=== PATIENT | male | born 1990 | race African-American/Black ===

== ENCOUNTER 2023-01-29 08:22 | Inpatient (IN) | payer OTHER ==
[~2023-01-29] VITALS: Ht 177.8 cm; Wt 48.1 kg
[~2023-01-29 08:22] MED LIST: UNRESOLVED CLARIFICATION ENTRY XX SCH
[2023-01-29] MEDS ORDERED: LIDOCAINE 2% 5ML JELLY UROJET TOP ONE (09:00)
[2023-01-29] MEDS ORDERED: LORazepam 2 MG/ML 1ML VIAL IM STA (09:02)
[2023-01-29] MEDS ORDERED: OLANZapine INTRAMUSCULAR 10MG VIAL IM ONE (09:05)
[2023-01-29] MEDS ORDERED: NS 1,000 ML IV ONE ×2 (09:15→10:10)
[2023-01-29 09:26] LABS: HEMATOCRIT 46.8 % (42.0-52.0); HEMOGLOBIN 15.5 g/dl (13.5-17.5); MEAN CORPUSCULAR HEMOGLOBIN 27.1 pg (27.0-33.0); MEAN CORPUSCULAR HGB CONC 33.1 g/dl (32.0-36.5); MEAN CORPUSCULAR VOLUME 81.8 fl (80.0-96.0); PLATELET COUNT, AUTOMATED 185 10^3/uL (150-450); RED BLOOD COUNT 5.72 10^6/uL (4.30-6.10); WHITE BLOOD COUNT 5.1 10^3/uL (4.0-10.0)
[2023-01-29 09:50] LABS: ETHYL ALCOHOL (ETHANOL) 0.004 % (0.000-0.010)
[2023-01-29 09:51] LABS: SALICYLATE LEVEL < 3.0 MG/DL (<30)
[2023-01-29 09:52] LABS: ALBUMIN 4.4 G/DL (3.2-5.2); ALKALINE PHOSPHATASE 65 U/L (46-116); ALT/SGPT 21 U/L (7.0-40); AST/SGOT 18 U/L (<34); BILIRUBIN,DIRECT 0.9 MG/DL (<0.4); BILIRUBIN,TOTAL 2.9 MG/DL (0.3-1.2); BLOOD UREA NITROGEN 17 MG/DL (9-23); CALCIUM LEVEL 10.4 MG/DL (8.5-10.1); CARBON DIOXIDE LEVEL 19 MMOL/L (20-31); CHLORIDE LEVEL 103 MMOL/L (98-107); CREATININE FOR GFR 1.19 MG/DL (0.70-1.30); GLOMERULAR FILTRATION RATE > 60.0 (>60); GLUCOSE, FASTING 77 MG/DL (60-100); POTASSIUM SERUM 4.8 MMOL/L (3.5-5.1); SODIUM LEVEL 145 MMOL/L (136-145); TOTAL PROTEIN 7.6 G/DL (5.7-8.2)
[2023-01-29 09:54] LABS: THYROID STIMULATING HORMONE 1.031 uIU/ML (0.55-4.78)
[2023-01-29 09:56] LABS: ACETAMINOPHEN LEVEL < 2.0 UG/ML (10.0-20.0)
[2023-01-29 10:32] LABS: APPEARANCE, URINE HAZY (CLEAR); BACTERIA, URINE AUTO NEGATIVE (NEGATIVE); BILIRUBIN, URINE AUTO NEGATIVE (NEGATIVE); BLOOD, URINE BLOOD 3+ (NEGATIVE); COLOR, URINE YELLOW (YELLOW); GLUCOSE, URINE (UA) AUTO NEGATIVE (NEGATIVE); KETONE, URINE AUTO 2+ mg/dL (NEGATIVE); LEUKOCYTE ESTERASE, URINE AUTO NEGATIVE (NEGATIVE); MUCUS, URINE SMALL (NEGATIVE); NITRITE, URINE AUTO NEGATIVE (NEGATIVE); PROTEIN, URINE AUTO NEGATIVE (NEGATIVE); RBC, URINE AUTO TNTC /HPF (0-3); SPECIFIC GRAVITY URINE AUTO 1.023 (1.002-1.035); SQUAMOUS EPITHELIAL CELL UR AU 0 /HPF (0-6); UROBILINOGEN, URINE AUTO 0.2 mg/dL (0.0-2.0); WBC, URINE AUTO 2 /HPF (0-3)
[2023-01-29 10:38] LABS: AMPHETAMINES LEVEL URINE NEGATIVE (NEGATIVE); BARBITURATES URINE NEGATIVE (NEGATIVE); BENZODIAZEPINES URINE NEGATIVE (NEGATIVE); COCAINE METABOLITE URINE NEGATIVE (NEGATIVE); METHADONE URINE NEGATIVE (NEGATIVE)
[2023-01-29 10:39] LABS: CANNABINOIDS URINE NEGATIVE (NEGATIVE); OPIATES URINE NEGATIVE (NEGATIVE); PHENCYCLIDINE URINE NEGATIVE (NEGATIVE)
[2023-01-29 11:15] VITALS: O2SAT 100
[2023-01-29 11:24] LABS: ABG pH (ARTERIAL) 7.427 UNITS (7.350-7.450)
[2023-01-29 11:25] LABS: ABG BASE EXCESS -8.9 (-2.0-2.0); ABG HCO3 13.2 MMOL/L (22.0-26.0); ABG O2 SATURATION 98.3 % (95.0-99.0); ABG PARTIAL PRESSURE CO2 20.5 mmHg (35.0-45.0); ABG PARTIAL PRESSURE O2 138.3 mmHg (75.0-100.0); ABG STANDARD HCO3 17.4 MMOL/L. (22.0-26.0); ABG TOTAL CO2 13.8 MMOL/L (22.0-29.0)
[2023-01-29] MEDS ORDERED: LORazepam 2 MG/ML 1ML VIAL IV STA (11:59)
[2023-01-29] MEDS ORDERED: MED REC IN PROGRESS XX SCH (13:05)
[2023-01-29 13:26] LABS: BLOOD UREA NITROGEN 15 MG/DL (9-23); CARBON DIOXIDE LEVEL 19 MMOL/L (20-31); CHLORIDE LEVEL 106 MMOL/L (98-107); CREATININE FOR GFR 1.16 MG/DL (0.70-1.30); GLOMERULAR FILTRATION RATE > 60.0 (>60); GLUCOSE, FASTING 74 MG/DL (60-100); POTASSIUM SERUM 4.1 MMOL/L (3.5-5.1); SODIUM LEVEL 139 MMOL/L (136-145)
[2023-01-29] MEDS ORDERED: MED REC CURRENTLY UNOBTAINABLE XX SCH (21:50)
[2023-01-30] MEDS ORDERED: MED REC IN PROGRESS XX SCH (17:25)
[2023-01-30] MEDS ORDERED: HOME MED LIST COMPLETE! XX SCH (17:40)
[2023-02-01 09:33] LABS: BLOOD UREA NITROGEN 8 MG/DL (9-23); CARBON DIOXIDE LEVEL 28 MMOL/L (20-31); CHLORIDE LEVEL 107 MMOL/L (98-107); CREATININE FOR GFR 0.82 MG/DL (0.70-1.30); GLOMERULAR FILTRATION RATE > 60.0 (>60); GLUCOSE, FASTING 75 MG/DL (60-100); POTASSIUM SERUM 3.9 MMOL/L (3.5-5.1); SODIUM LEVEL 141 MMOL/L (136-145)
[2023-02-01 15:36] VITALS: BP 123/61; TEMP 97.2
[2023-02-01] MEDS ORDERED: diphenhydrAMINE 25MG CAP PO PRN (16:10)
[2023-02-01] MEDS ORDERED: MOM 30ML SUSPENSION UDC PO PRN (16:10)
[2023-02-01] MEDS ORDERED: MAALOX 30 ML SUSP *UDC PO PRN (16:10)
[2023-02-01] MEDS ORDERED: ACETAMINOPHEN TAB 650MG DOSE (2X325MG) PO PRN (16:10)
[2023-02-01] MEDS ORDERED: traZODone 50 MG TAB PO PRN (16:10)
[2023-02-01] MEDS ORDERED: IBUPROFEN 400MG TAB PO PRN (16:10)
[2023-02-02 05:57] VITALS: BP 105/66; TEMP 97.2; O2SAT 98
[2023-02-02 18:25] VITALS: BP 113/76; TEMP 96.8; O2SAT 96
[2023-02-02] MEDS: OLANZapine 2.5MG TABLET PO SCH (20:45)
[2023-02-03 06:19] VITALS: BP 108/61; TEMP 97.9; O2SAT 99
[2023-02-03 17:49] VITALS: BP 111/65; TEMP 97.5; O2SAT 98
[2023-02-03] MEDS: MIRTAZAPINE 7.5MG PER 1/2 TABLET PO SCH (21:00)
[2023-02-03] MEDS: OLANZapine 2.5MG TABLET PO SCH (21:00)
[2023-02-04 07:22] LABS: CHOLESTEROL RISK RATIO 2.58 (<5); HDL CHOLESTEROL 53.3 MG/DL (>40); LDL CHOLESTEROL 72.7 MG/DL (<100); NON-HDL-C 84.7 MG/DL
[2023-02-04 18:03] VITALS: BP 115/72; TEMP 97.1; O2SAT 99
[2023-02-04] MEDS: MIRTAZAPINE 7.5MG PER 1/2 TABLET PO SCH (21:00)
[2023-02-04] MEDS: OLANZapine 2.5MG TABLET PO SCH (21:00)
[2023-02-05 18:00] VITALS: BP 124/73; TEMP 97
[2023-02-05] MEDS: MIRTAZAPINE 7.5MG PER 1/2 TABLET PO SCH (21:00)
[2023-02-05] MEDS: OLANZapine 2.5MG TABLET PO SCH (21:00)
[2023-02-06] MEDS ORDERED: OLANZapine 2.5MG TABLET PO ONE (10:40)
[2023-02-06 11:32] LABS: BASO % 0.3 % (0.0-1.0); EOS % 0.3 % (0.0-3.0); HEMATOCRIT 42.9 % (42.0-52.0); HEMOGLOBIN 14.3 g/dl (13.5-17.5); LYMPH # 0.8 10^3/uL (1.5-5.0); LYMPH % 6.6 % (24.0-44.0); MEAN CORPUSCULAR HEMOGLOBIN 26.9 pg (27.0-33.0); MEAN CORPUSCULAR HGB CONC 33.3 g/dl (32.0-36.5); MEAN CORPUSCULAR VOLUME 80.8 fl (80.0-96.0); MONO # 0.7 10^3/uL (0.0-0.8); MONO % 5.9 % (2.0-8.0); NEUTROPHILS # 9.9 10^3/uL (1.5-8.5); NEUTROPHILS % 86.5 % (36.0-66.0); PLATELET COUNT, AUTOMATED 212 10^3/uL (150-450); RED BLOOD COUNT 5.31 10^6/uL (4.30-6.10); WHITE BLOOD COUNT 11.5 10^3/uL (4.0-10.0)
[2023-02-06 11:57] LABS: ALBUMIN 4.3 G/DL (3.2-5.2); ALKALINE PHOSPHATASE 82 U/L (46-116); ALT/SGPT 23 U/L (7.0-40); AST/SGOT 18 U/L (<34); BILIRUBIN,TOTAL 3.4 MG/DL (0.3-1.2); BLOOD UREA NITROGEN 15 MG/DL (9-23); CALCIUM LEVEL 10.1 MG/DL (8.5-10.1); CARBON DIOXIDE LEVEL 25 MMOL/L (20-31); CHLORIDE LEVEL 100 MMOL/L (98-107); CREATININE FOR GFR 1.06 MG/DL (0.70-1.30); GLOMERULAR FILTRATION RATE > 60.0 (>60); GLUCOSE, FASTING 91 MG/DL (60-100); POTASSIUM SERUM 4.2 MMOL/L (3.5-5.1); SODIUM LEVEL 140 MMOL/L (136-145); TOTAL PROTEIN 7.7 G/DL (5.7-8.2)
[2023-02-06] MEDS: OLANZapine 2.5MG TABLET PO SCH ×3 (13:00→21:00)
[2023-02-06] MEDS ORDERED: OLANZapine 10 MG TAB PO ONE (17:40)
[2023-02-06] MEDS: MIRTAZAPINE 7.5MG PER 1/2 TABLET PO SCH (21:00)
[2023-02-06 21:57] LABS: ALBUMIN 4.2 G/DL (3.2-5.2); ALKALINE PHOSPHATASE 84 U/L (46-116); ALT/SGPT 16 U/L (7.0-40); AST/SGOT 30 U/L (<34); BILIRUBIN,TOTAL 0.3 MG/DL (0.3-1.2); BLOOD UREA NITROGEN 12 MG/DL (9-23); CALCIUM LEVEL 8.6 MG/DL (8.5-10.1); CARBON DIOXIDE LEVEL 28 MMOL/L (20-31); CHLORIDE LEVEL 104 MMOL/L (98-107); CREATININE FOR GFR 0.73 MG/DL (0.70-1.30); GLOMERULAR FILTRATION RATE > 60.0 (>60); GLUCOSE, FASTING 102 MG/DL (60-100); POTASSIUM SERUM 4.5 MMOL/L (3.5-5.1); SODIUM LEVEL 141 MMOL/L (136-145); TOTAL PROTEIN 6.9 G/DL (5.7-8.2)
[2023-02-07] MEDS: OLANZapine 2.5MG TABLET PO SCH ×4 (09:00→20:28)
[2023-02-07] MEDS: MIRTAZAPINE 7.5MG PER 1/2 TABLET PO SCH (20:28)
[2023-02-08] MEDS: OLANZapine 2.5MG TABLET PO SCH ×4 (09:00→21:00)
[2023-02-08] MEDS: MIRTAZAPINE 7.5MG PER 1/2 TABLET PO SCH (21:00)
[2023-02-09] MEDS: OLANZapine 2.5MG TABLET PO SCH ×4 (09:00→21:00)
[2023-02-09] MEDS: MIRTAZAPINE 7.5MG PER 1/2 TABLET PO SCH (21:00)
[2023-02-10] MEDS: OLANZapine 2.5MG TABLET PO SCH ×4 (09:00→20:43)
[2023-02-10] MEDS: MIRTAZAPINE 7.5MG PER 1/2 TABLET PO SCH (20:43)
[2023-02-11] MEDS: OLANZapine 2.5MG TABLET PO SCH ×4 (09:00→20:37)
[2023-02-11] MEDS: MIRTAZAPINE 7.5MG PER 1/2 TABLET PO SCH (20:37)
[2023-02-12] MEDS: OLANZapine 2.5MG TABLET PO SCH ×4 (09:00→21:00)
[2023-02-12] MEDS: MIRTAZAPINE 7.5MG PER 1/2 TABLET PO SCH (21:00)
[2023-02-13] MEDS: OLANZapine 2.5MG TABLET PO SCH ×4 (09:00→20:49)
[2023-02-13] MEDS: MIRTAZAPINE 7.5MG PER 1/2 TABLET PO SCH (20:49)
[2023-02-14] MEDS: OLANZapine 2.5MG TABLET PO SCH ×4 (09:00→21:00)
[2023-02-14] MEDS: MIRTAZAPINE 7.5MG PER 1/2 TABLET PO SCH (21:00)
[2023-02-15] MEDS: OLANZapine 2.5MG TABLET PO SCH ×4 (09:00→21:00)
[2023-02-15] MEDS: MIRTAZAPINE 7.5MG PER 1/2 TABLET PO SCH (21:00)
[2023-02-16] MEDS: OLANZapine 2.5MG TABLET PO SCH ×4 (08:53→21:00)
[2023-02-16 15:53] VITALS: BP 123/71; TEMP 98.8; O2SAT 100
[2023-02-16 16:23] LABS: BASO % 0.5 % (0.0-1.0); HEMATOCRIT 39.9 % (42.0-52.0); HEMOGLOBIN 13.3 g/dl (13.5-17.5); LYMPH # 0.9 10^3/uL (1.5-5.0); LYMPH % 14.3 % (24.0-44.0); MEAN CORPUSCULAR HEMOGLOBIN 27.4 pg (27.0-33.0); MEAN CORPUSCULAR HGB CONC 33.3 g/dl (32.0-36.5); MEAN CORPUSCULAR VOLUME 82.3 fl (80.0-96.0); MONO # 0.4 10^3/uL (0.0-0.8); MONO % 6.9 % (2.0-8.0); NEUTROPHILS # 4.9 10^3/uL (1.5-8.5); NEUTROPHILS % 78.1 % (36.0-66.0); PLATELET COUNT, AUTOMATED 266 10^3/uL (150-450); RED BLOOD COUNT 4.85 10^6/uL (4.30-6.10); WHITE BLOOD COUNT 6.2 10^3/uL (4.0-10.0)
[2023-02-16 16:30] LABS: ALBUMIN 3.8 G/DL (3.2-5.2); ALKALINE PHOSPHATASE 97 U/L (46-116); ALT/SGPT 27 U/L (7.0-40); AST/SGOT 21 U/L (<34); BILIRUBIN,TOTAL 1.1 MG/DL (0.3-1.2); BLOOD UREA NITROGEN 22 MG/DL (9-23); CALCIUM LEVEL 9.7 MG/DL (8.5-10.1); CARBON DIOXIDE LEVEL 28 MMOL/L (20-31); CHLORIDE LEVEL 105 MMOL/L (98-107); CREATININE FOR GFR 0.83 MG/DL (0.70-1.30); GLOMERULAR FILTRATION RATE > 60.0 (>60); GLUCOSE, FASTING 93 MG/DL (60-100); POTASSIUM SERUM 4.5 MMOL/L (3.5-5.1); SODIUM LEVEL 143 MMOL/L (136-145); TOTAL PROTEIN 7.2 G/DL (5.7-8.2)
[2023-02-16] MEDS: MIRTAZAPINE 7.5MG PER 1/2 TABLET PO SCH (21:00)
[2023-02-17 06:11] VITALS: BP 108/55; TEMP 97.6; O2SAT 100
[2023-02-17] MEDS: OLANZapine 2.5MG TABLET PO SCH ×4 (08:27→20:58)
[2023-02-17] MEDS: MIRTAZAPINE 7.5MG PER 1/2 TABLET PO SCH (20:58)
[2023-02-18] MEDS: OLANZapine 2.5MG TABLET PO SCH ×4 (09:00→21:00)
[2023-02-18] MEDS: MIRTAZAPINE 7.5MG PER 1/2 TABLET PO SCH (21:00)
[2023-02-19] MEDS: OLANZapine 2.5MG TABLET PO SCH (08:39)
== END 2023-02-19 12:38 | disposition home or self-care (01) | DRG 881 ==
LOC: M ED 08:22 → EDBD 08:22 → CANBEDREQ 13:53 → M ED INP 02-01 12:16 → M PSY 02-01 15:31
PROVIDERS: ADMIT Student in an Organized Health Care Education/Training Program; ATTEND Student in an Organized Health Care Education/Training Program
DX: F43.21 Adjustment disorder with depressed mood (principal); Z68.1 Body mass index [BMI] 19.9 or less, adult; F50.9 Eating disorder, unspecified; F94.0 Selective mutism

== ENCOUNTER 2023-02-19 14:39 | Emergency (ER) | payer OTHER | END 2023-02-19 15:43 | disposition home or self-care (01) | LOC: M ED 14:39 | DX: F43.9 Reaction to severe stress, unspecified (principal) ==

== ENCOUNTER 2023-02-25 16:50 | Emergency (ER) | payer OTHER ==
[~2023-02-25] VITALS: Ht 170.2 cm; Wt 58.6 kg
[2023-02-25] MEDS ORDERED: DEXTROSE 50% 50ML SYRINGE As Ordered ONE (17:03)
[2023-02-25 17:04] VITALS: TEMP 97.3
[2023-02-25] MEDS ORDERED: DEXTROSE 50% 50ML SYRINGE IV STA (17:05)
[2023-02-25] MEDS ORDERED: NS 1,000 ML IV ONE (17:25)
[2023-02-25 17:27] LABS: BASO % 0.2 % (0.0-1.0); HEMATOCRIT 28.3 % (42.0-52.0); HEMOGLOBIN 9.5 g/dl (13.5-17.5); LYMPH # 0.6 10^3/uL (1.5-5.0); LYMPH % 9.6 % (24.0-44.0); MEAN CORPUSCULAR HEMOGLOBIN 27.9 pg (27.0-33.0); MEAN CORPUSCULAR HGB CONC 33.6 g/dl (32.0-36.5); MEAN CORPUSCULAR VOLUME 83.2 fl (80.0-96.0); MONO # 0.3 10^3/uL (0.0-0.8); MONO % 5.8 % (2.0-8.0); NEUTROPHILS # 4.8 10^3/uL (1.5-8.5); NEUTROPHILS % 83.9 % (36.0-66.0); PLATELET COUNT, AUTOMATED 170 10^3/uL (150-450); WHITE BLOOD COUNT 5.7 10^3/uL (4.0-10.0)
[2023-02-25 17:55] LABS: ALBUMIN 2.5 G/DL (3.2-5.2); ALKALINE PHOSPHATASE 69 U/L (46-116); ALT/SGPT 33 U/L (7.0-40); AST/SGOT 21 U/L (<34); BILIRUBIN,DIRECT 0.3 MG/DL (<0.4); BILIRUBIN,TOTAL 0.7 MG/DL (0.3-1.2); BLOOD UREA NITROGEN 10 MG/DL (9-23); CALCIUM LEVEL 7.7 MG/DL (8.5-10.1); CARBON DIOXIDE LEVEL 27 MMOL/L (20-31); CHLORIDE LEVEL 111 MMOL/L (98-107); CREATININE FOR GFR 0.94 MG/DL (0.70-1.30); GLOMERULAR FILTRATION RATE > 60.0 (>60); GLUCOSE, FASTING 65 MG/DL (60-100); SODIUM LEVEL 144 MMOL/L (136-145); TOTAL PROTEIN 4.7 G/DL (5.7-8.2)
[2023-02-25 17:56] LABS: THYROID STIMULATING HORMONE 1.084 uIU/ML (0.55-4.78)
[2023-02-25 17:59] LABS: ACETONE/KETONE 0.08 MMOL/L (0.02-0.27)
[2023-02-25 18:09] LABS: VENOUS BASE EXCESS -4.6 (-2.0-2.0); VENOUS HCO3 20.5 MMOL/L (23.0-27.0); VENOUS O2 SATURATION 92.2 % (60.0-80.0); VENOUS PARTIAL PRESSURE CO2 37.9 mmHg (38.0-50.0); VENOUS PARTIAL PRESSURE O2 65.4 mmHg (30.0-50.0); VENOUS PH 7.351 UNITS (7.330-7.430); VENOUS STANDARD HCO3 20.6 MMOL/L; VENOUS TOTAL CO2 21.7 MMOL/L (24.0-28.0)
[2023-02-25 18:20] LABS: ETHYL ALCOHOL (ETHANOL) < 0.003 % (0.000-0.010)
[2023-02-25 18:21] LABS: ACETAMINOPHEN LEVEL < 2.0 UG/ML (10.0-20.0); SALICYLATE LEVEL < 3.0 MG/DL (<30)
[2023-02-25 19:15] VITALS: BP 102/64
[2023-02-25 19:25] LABS: AMPHETAMINES LEVEL URINE NEGATIVE (NEGATIVE); BARBITURATES URINE NEGATIVE (NEGATIVE); CANNABINOIDS URINE NEGATIVE (NEGATIVE); COCAINE METABOLITE URINE NEGATIVE (NEGATIVE); METHADONE URINE NEGATIVE (NEGATIVE); OPIATES URINE NEGATIVE (NEGATIVE); PHENCYCLIDINE URINE NEGATIVE (NEGATIVE)
[2023-02-25 19:28] LABS: BENZODIAZEPINES URINE POSITIVE (NEGATIVE)
[2023-02-25 19:30] VITALS: O2SAT 98
[2023-02-26] MEDS ORDERED: MED REC CURRENTLY UNOBTAINABLE XX SCH (00:05)
== END 2023-02-26 20:21 | disposition home or self-care (01) ==
LOC: EDBD 16:50 → M ED 16:50
DX: F94.0 Selective mutism (principal); T73.0XXA Starvation, initial encounter; D64.9 Anemia, unspecified; F17.200 Nicotine dependence, unspecified, uncomplicated